=== PATIENT | male | born 1975 | race Caucasian/White ===

== ENCOUNTER → 2021-03-20 | Outpatient (CLI) | payer OTHER | LOC: CAT 11:10 | PROVIDERS: ATTEND Neuromusculoskeletal Medicine & OMM | DX: Z13.6 Encounter for screening for cardiovascular disorders (principal) ==

== ENCOUNTER → 2021-03-20 | Outpatient (CLI) | payer OTHER | LOC: SJCVCIMAG 03-13 09:06 | PROVIDERS: ATTEND Internal Medicine | DX: I11.9 Hypertensive heart disease without heart failure (principal); G47.33 Obstructive sleep apnea (adult) (pediatric); E66.9 Obesity, unspecified; Z79.899 Other long term (current) drug therapy ==